=== PATIENT | female | born 2000 | race Hispanic/Latino ===

== ENCOUNTER 2022-09-27 19:29 | Emergency (ER) | payer MEDICAID ==
[2022-09-27] MEDS ORDERED: Bacitracin 1 PK ONE ×2 (23:21)
[2022-09-27] MEDS ORDERED: Boostrix 0.5 ML (Tdap) VIAL (>/=7 yrs of age) ONE (23:21)
== END 2022-09-27 23:55 | disposition home or self-care (01) ==
LOC: ERS 19:29
DX: S51.812A Laceration without foreign body of left forearm, initial encounter (principal); W26.8XXA Contact with other sharp object(s), not elsewhere classified, initial encounter; Z23 Encounter for immunization
CPT/HCPCS: 12002; 90471; 90715